=== PATIENT | female | born 1945 | race Caucasian/White ===

== ENCOUNTER 2018-07-31 08:37 | Day surgery (SDC) | payer MEDICARE, BC ==
[~2018-07-31] VITALS: Ht 172.7 cm; Wt 66.1 kg
[2018-07-31] MEDS ORDERED: normal saline 1000ml 1,000 ML IV PRN (09:20)
[2018-07-31 09:30] VITALS: BP 111/48
[2018-07-31 09:37] LABS: BASOPHILS # (AUTO) 0.1 X10'3 (0-0.2); BASOPHILS % (AUTO) 0.8 % (0-1); EOSINOPHILS # (AUTO) 0.2 X10'3 (0-0.9); EOSINOPHILS % (AUTO) 2.1 % (0-6); HEMATOCRIT 30.7 % (35.0-45.0); HEMOGLOBIN 10.3 g/dl (12.0-16.0); LYMPHOCYTES % (AUTO) 10.4 % (21-51); MEAN CORPUSCULAR HEMOGLOBIN 30.3 PG (27.0-31.0); MEAN CORPUSCULAR HGB CONC 33.4 g/dL (33.0-36.5); MEAN CORPUSCULAR VOLUME 90.7 FL (78-98); MEAN PLATELET VOLUME 7.9 FL (7.4-10.4); MONOCYTES # (AUTO) 1.1 X10'3 (0-0.9); MONOCYTES % (AUTO) 10.8 % (2-12); NEUTROPHILS # (AUTO) 7.5 X10'3 (1.8-7.7); NEUTROPHILS % (AUTO) 75.9 % (42-75); PLATELET COUNT 190 X10'3 (140-440); RED BLOOD COUNT 3.39 X10'6 (4.20-5.60); RED CELL DISTRIBUTION WIDTH 20.8 % (11.5-14.5); WHITE BLOOD COUNT 9.9 X10'3 (4.5-11.0)
[2018-07-31 09:49] LABS: INR 1.5 INR
[2018-07-31] MEDS ORDERED: NITR50CA4 PO (09:53)
[2018-07-31] MEDS ORDERED: CALC667T5 PO (09:53)
[2018-07-31] MEDS ORDERED: COU4T PO (09:53)
[2018-07-31] MEDS ORDERED: ATOR40TA PO (09:53)
[2018-07-31] MEDS ORDERED: DOCU100C41 PO (09:53)
[2018-07-31] MEDS ORDERED: ESCI10TA PO (09:53)
[2018-07-31] MEDS ORDERED: METO25TA6 PO (09:53)
[2018-07-31] MEDS ORDERED: MULT-1085 PO (09:53)
[2018-07-31] MEDS ORDERED: FLUD0.1T PO (09:53)
[2018-07-31] MEDS ORDERED: NITR0.4T51 SL (09:53)
[2018-07-31] MEDS ORDERED: LISI-604 PO (09:53)
[2018-07-31 09:56] LABS: ALBUMIN 2.7 G/DL (3.4-5.0); ANION GAP 5 (8-16); BLOOD UREA NITROGEN 21 MG/DL (7-18); CALCIUM 8.9 MG/DL (8.5-10.1); CHLORIDE 101 MMOL/L (99-107); CREATININE 2.99 MG/DL (0.40-0.90); GLUCOSE 114 MG/DL (70-104); SODIUM 138 MMOL/L (135-145); TOTAL CARBON DIOXIDE 31.6 MMOL/L (24-32); eGFR 15 ML/MIN
[2018-07-31] MEDS ORDERED: LIDOcaine 1%/PF 5ML 10 MG/ML VIAL ONE (10:10)
[2018-07-31] MEDS ORDERED: heparin sodium, porcine/PF 100unit/ml 5ML syringe ICATH ONE (10:20)
[2018-07-31] MEDS ORDERED: fentaNYL/PF 50MCG/1 ML 2ML syringe IV PRN (10:20)
[2018-07-31] MEDS ORDERED: midazolam 2 mg/2 ml injection IV PRN (10:20)
[2018-07-31] MEDS ORDERED: heparin sodium, porcine/PF 100unit/ml 5ML syringe ONE (10:24)
[2018-07-31] MEDS ORDERED: midazolam 2 mg/2 ml injection ONE (10:24)
[2018-07-31] MEDS ORDERED: fentaNYL/PF 50MCG/1 ML 2ML syringe ONE (10:24)
[2018-07-31 12:15] VITALS: BP 125/74
[2018-07-31 12:30] VITALS: BP 117/65
[2018-07-31 12:45] VITALS: BP 113/51
[2018-07-31 13:00] VITALS: BP 110/50
[2018-07-31 13:15] VITALS: BP 111/56
[2018-07-31 16:14] LABS: ANISOCYTOSIS 3+; PLATELET ESTIMATE NORMAL
[2018-07-31 16:16] LABS: ELLIPTOCYTES FEW; POLYCHROMASIA FEW; SCHISTOCYTES FEW; STOMATOCYTES FEW
== END 2018-07-31 13:35 | disposition home or self-care (01) ==
LOC: SSTAY O 08:37
PROVIDERS: ATTEND Radiology Vascular & Interventional Radiology
DX: C50.912 Malignant neoplasm of unspecified site of left female breast (principal); C77.0 Secondary and unspecified malignant neoplasm of lymph nodes of head, face and neck; I12.0 Hypertensive chronic kidney disease with stage 5 chronic kidney disease or end stage renal disease; N18.6 End stage renal disease; I25.10 Atherosclerotic heart disease of native coronary artery without angina pectoris; I25.2 Old myocardial infarction; E78.5 Hyperlipidemia, unspecified; D64.9 Anemia, unspecified; M19.90 Unspecified osteoarthritis, unspecified site; Z98.890 Other specified postprocedural states; Z95.1 Presence of aortocoronary bypass graft; Z79.899 Other long term (current) drug therapy; Z91.040 Latex allergy status; Z91.018 Allergy to other foods; Z88.8 Allergy status to other drugs, medicaments and biological substances; Z91.048 Other nonmedicinal substance allergy status; Z88.2 Allergy status to sulfonamides; Z88.1 Allergy status to other antibiotic agents
CPT/HCPCS: 36415; 36561; 38505; 76942; 77001; 80048; 85025; 85610; J1642; J2001; J2250; J3010; J7030; 76937; 88184; 88185; 99152; 99153; A6219; C1788; C1894